=== PATIENT | male | born 1995 | race African-American/Black ===

== ENCOUNTER 2021-05-22 20:14 | Emergency (ER) | payer SELFPAY ==
--- NOTE | ~2021-05-22 | CT_ITS ---
EXAMINATION: CT facial & cervical spine wo DATE: 05/22/2021 21:02 INDICATION: Altered mental status. Swelling to the right face. TECHNIQUE: Computed tomography (CT) of the maxillofacial region and cervical spine was performed with out intravenous contrast. The dose-length product was 455.06 mGy-cm. Automated exposure control and i terative reconstruction technique were employed. COMPARISON: None FINDINGS: MAXILLOFACIAL CT: No acute maxillofacial fracture. There is mucosal thickening right sphenoid sinus. Mastoids are pneum atized. No mandible is intact. Temporomandibular joints are symmetric. Pterygoid plates are intact. N o nasal fracture. No evidence for orbital blowout fracture. CERVICAL SPINE CT: Vertebral body heights are maintained. No fracture, subluxation or dislocation. No evidence for listh esis. Craniovertebral junction is normal. IMPRESSION: 1. No acute abnormality of the facial bones or cervical spine. Reviewed, dictated and finalized at location A. G ROOM OPERATOR
--- NOTE | ~2021-05-22 | CT_ITS ---
EXAMINATION: CT BRAIN W/O DATE: 05/22/2021 21:02 INDICATION: Altered mental status TECHNIQUE: Computed tomography (CT) of the head was performed without intravenous contrast. The dose- length product was 605.33 mGy-cm. Automated exposure control and iterative reconstruction technique w ere employed. COMPARISON: No prior studies for comparison. FINDINGS: Normal brain parenchymal volume for age. Normal gonzalez-white differentiation. No acute intrac ranial hemorrhage, infarction, mass or mass effect. No ventriculomegaly or midline shift. Midline sagittal images demonstrate a normal corpus callosum, c raniovertebral junction and sella turcica. Basilar cisterns are patent. There is mucosal thickening of the right sphenoid sinus. IMPRESSION: 1. No acute intracranial abnormality. 2: Right sphenoid sinusitis. Reviewed, dictated and finalized at location A. [employer]
[2021-05-22 20:12] VITALS: BP 171/117; PULSE 121; RESP 20; TEMP 36.4; O2SAT 100
--- NOTE | 2021-05-22 20:22 | ECG_ITS ---
Measurements Intervals [place] Rate: 108 P: 47 ND: 157 QRS: 14 QRSD: 82 T: 27 QT: 324 QTc: 435 Interpretive Statements SINUS TACHYCARDIA BORDERLINE ECG NO PREVIOUS ECG AVAILABLE FOR COMPARISON Electronically Signed On 05-25-2021 13:45:28 [employer] CONTR[employer] by Mirza Santiago M.D.
[2021-05-22] MEDS: SODIUM CHLORIDE 0.9% IV 1,000 ML 999 ML IV CONT (20:34)
[2021-05-22 20:35] LABS: Basophils Percent Auto 0.5 % (0.2-1.2); Eosinophils Percent Auto 0.5 % (0-4.4); Hematocrit 41.9 % (42.0-52.0); Hemoglobin 13.5 g/dL (14.0-18.0); Lymphocytes Absolute Auto 2.36 K/mm3 (0.9-3.2); Lymphocytes Percent Auto 57.4 % (18.3-44.2); Mean Corpuscular HGB Conc 32.2 g/dl (32-36); Mean Corpuscular Hemoglobin 28.2 pg (26-34); Mean Corpuscular Volume 87.5 fl (80-100); Mean Platelet Volume 9.7 fl (7.4-10.4); Monocytes Absolute Auto 0.3 K/mm3 (0.1-0.6); Monocytes Percent Auto 7.5 % (2.6-8.5); Neutrophils Absolute Auto 1.4 K/mm3 (1.3-6.7); Neutrophils Percent Auto 34.1 % (45.5-73.1); Platelet Count Result 299 k/mm3 (150-375); Red Blood Count 4.79 M/mm3 (4.6-6.20); Red Cell Distribution Width 13.5 % (11.5-14.5); White Blood Count 4.1 K/mm3 (4.5-10.0)
[2021-05-22 20:38] LABS: Add Urine Microscopic? YES; Appearance Urine Clear (Clear); Bilirubin Urine Negative (Negative); Blood Urine 2+ (Negative); Color Urine Colorless (Yellow); Glucose Urine UA Negative (Negative); Ketones Urine Negative (Negative); Leukocyte Esterase Ur Negative LEU/UL (Negative); Nitrate Urine Negative (Negative); Protein Urine Negative (Negative); Urobilinogen Urine Negative mg/dL (<2.0)
[2021-05-22 20:40] LABS: Specific Grav Ur 1.002 (1.001-1.035)
[2021-05-22 20:50] LABS: Amphetamine Screen Urine Negative (Negative); Barbiturate Screen Urine Negative (Negative); Benzodiazepines Screen Urine Negative (Negative); Cannabinoid Screen Urine Negative (Negative); Cocaine Screen Urine Negative (Negative); Methadone Screen Urine Negative (Negative); Opiate Screen Urine Negative (Negative); Phencyclidine Screen Urine Negative (Negative)
[2021-05-22 20:56] LABS: Acetaminophen < 10 ug/mL (10-30); Ammonia < 9 umol/L (9-30); Salicylate < 1.0 mg/dL (2-20)
[2021-05-22 20:57] LABS: Alanine Aminotransferase 24 U/L (4-50); Albumin Level 4.9 g/dL (3.5-5.1); Alkaline Phosphatase 55 U/L (38-126); Anion Gap 17 mmol/L (8-16); Aspartate Amino Transferase 46 U/L (17-59); Bilirubin,Total 0.2 mg/dL (0.2-1.3); Blood Urea Nitrogen 9 mg/dL (9-20); Calcium 8.9 mg/dL (8.4-10.2); Carbon Dioxide 23 mmol/L (22-30); Chloride 110 mmol/L (98-107); Estimated CRCL calculation 107 ml/min; Estimated Glomerular Filt Rate > 60; Ethanol 386 mg/dL (<10); Glucose 129 mg/dL (65-110); Potassium 3.4 mmol/L (3.4-5.0); Sodium 150 mmol/L (137-145)
--- NOTE | 2021-05-22 21:10 | ED.AMS ---
HPI - Altered Mental Status General Chief Complaint: Altered Mental Status <Hoang French MD - Last Filed: 05/22/21 22:22> Stated Complaint: etoh found on street, uncooperative <Hoang French MD - Last Filed: 05/22/21 22:22> Time Seen by Provider: 05/22/21 20:22 <Hoang French MD - Last Filed: 05/22/21 22:22> Source: patient and EMS <Hoang French MD - Last Filed: 05/22/21 22:22> History of Present Illness HPI narrative: Patient was brought in by EMS. Bystanders called as they found the patient laying in the street. EMS arrived he appeared to be intoxicated and had bleeding and swelling to the right side of his face patient was not able to articulate the events of this evening EMS transported to the ER for further evaluation. Patient is unsure as to what happened tonight he is not sure if he hit his head he was unaware of his facial injuries. He does report drinking this evening denies any focal areas of pain denies any nausea vomiting or diarrhea <Hoang French MD - Last Filed: 05/22/21 22:22> Related Data Allergies/Adverse Reactions: Allergies Allergy/AdvReac Type Severity Reaction Status Date / Time No Known Allergies Allergy Verified 05/22/21 20:30 <Hoang French MD - Last Filed: 05/22/21 22:22> Review of Systems Review of Systems: CONSTITUTIONAL: Denies fever, chills, or sweats. EYES: Denies visual changes, redness, or discharge. ENT: Denies rhinorrhea, congestion, sore throat, or otalgia. CARDIOVASCULAR: Denies chest pain, palpitations, or edema. RESPIRATORY: Denies cough or dyspnea. GASTROINTESTINAL: Denies abdominal pain, nausea, vomiting, or diarrhea. GENITOURINARY: Denies dysuria or hematuria. SKIN: Denies rash or itching. MUSCULOSKELETAL: Denies back pain, joint pain, or myalgia. NEUROLOGIC: Denies headache, numbness, dizziness, or weakness. PSYCHIATRIC: Denies anxiety or depression. <Hoang French MD - Last Filed: 05/22/21 22:22> All systems reviewed & are unremarkable except as noted in HPI and below <Hoang French MD - Last Filed: 05/22/21 22:22> ROS unobtainable: Yes other (ROS may be limited due to alcohol intoxication) <Hoang French MD - Last Filed: 05/22/21 22:22> PMFSH Social History Social History: Social History (Updated 05/22/21 @ 21:12 by Hoang French MD) Alcohol intake: current <Hoang French MD - Last Filed: 05/22/21 22:22> Exam Narrative: GENERAL: Well-appearing, well-nourished, and in no acute distress. HEAD: Superficial laceration to the right scalp hemostatic with good wound edge approximation there is swelling to the right zygoma EYES: PERRLA and EOMI. ENT: Nares clear, no rhinorrhea or epistaxis. Mucous membranes moist. No fractured teeth NECK: Supple. No masses. No JVD CHEST: Clear to auscultation. No respiratory distress. No wheezes rales or rhonchi HEART: Regular rate and rhythm. No murmur heard. Normal peripheral pulses. ABDOMEN: Soft, nontender, nondistended, normal active bowel sounds. EXTREMITIES: Normal range of motion. No edema. SKIN: Warm, dry, no rash. NEURO: No focal deficits. Alert PSYCH: Normal mood and affect. <Hoang French MD - Last Filed: 05/22/21 22:22> Course Reevaluation(s) Reevaluation #1: Patient resting comfortably work-up thus far reviewed with patient and family given his significant alcohol level he would benefit from metabolization and reevaluation patient family comfortable with the plan. Patient signed out to Dr. Claudio pending metabolization and reassessment <Hoang French MD - Last Filed: 05/22/21 22:22> Awake alert and oriented x3. Ambulating with steady gait. Discharge home. <Donaldo Claudio MD - Last Filed: 05/23/21 01:24> Date: 05/22/21 <Hoang French MD - Last Filed: 05/22/21 22:22> 05/23/21 <Donaldo Claudio MD - Last Filed: 05/23/21 01:24> Time: 22:06 <Hoang French MD - Last Filed: 05/22/21 22:
[2021-05-22] MEDS: THIAMINE HCL INJ 100 MG, FOLIC ACID INJ 1 MG, MULTIVITAMINS-12 INJ VIAL 1 5 ML, MULTIVI... IV CONT (22:00)
[2021-05-22 22:28] VITALS: BP 146/107; PULSE 97; RESP 18; O2SAT 100
--- NOTE | 2021-05-22 23:08 | PC.NURSE ---
Assumed care of pt at this time. Pt upright on stretcher with even respirations. No signs of agitation or combative behavior at this time. remains at bedside. POC updated, comfort addressed, lights dimmed, call light at bedside.
[2021-05-22 23:20] VITALS: BP 140/98; PULSE 102; RESP 18; O2SAT 99
[2021-05-23 00:30] VITALS: BP 121/97; PULSE 88; RESP 18; O2SAT 100
--- NOTE | 2021-05-23 01:18 | PC.NURSE ---
Pt ambulatory to use restroom, steady gait and a&oX4 noted.
== END 2021-05-23 02:04 | disposition home or self-care (01) ==
PROVIDERS: Emergency Provider Emergency Medicine
DX: F10.120 Alcohol abuse with intoxication, uncomplicated (principal); Y90.8 Blood alcohol level of 240 mg/100 ml or more; S01.01XA Laceration without foreign body of scalp, initial encounter; J32.3 Chronic sphenoidal sinusitis; W19.XXXA Unspecified fall, initial encounter
CPT/HCPCS: 36415; 70450; 70486; 72125; 80053; 80307; 81001; 82140; 85025; 93005; 96361; 96365; 96366; 99284; J3411; J3475; J7030